=== PATIENT | female | born 1935 | race Caucasian/White ===

== ENCOUNTER 2020-08-16 12:40 | Inpatient (IN) ==
[~2020-08-16 12:40] MED LIST: CeFAZolin 2 GM/120 ML BAG IVPB SCH
[2020-08-16] MEDS ORDERED: CeFAZolin Syr 2,000MG/20 ML 2,000 MG/20 ML SYRINGE IVPB ONE (12:55)
[2020-08-16] MEDS ORDERED: Ringers Solution, Lactated 1,000 ML IVC SCH ×2 (13:00→19:45)
[2020-08-16] MEDS ORDERED: Acetaminophen IV 1,000 MG/100 ML INFUS..BTL IVPB ONE (13:22)
[2020-08-16] MEDS ORDERED: Famotidine 20 MG/2 ML VIAL IVP ONE (13:22)
[2020-08-16] MEDS ORDERED: Povidone-Iodine 45 ML, Sodium Chloride IRRigation 1,000 ML IR ONE (14:15)
[2020-08-16] MEDS ORDERED: *HR* Propofol 200 MG/20 ML VIAL IVP ONE (14:19)
[2020-08-16] MEDS ORDERED: *HR* FentaNYL (PF) 100 MCG/2 ML VIAL ONE (14:19)
[2020-08-16] MEDS ORDERED: Lidocaine -MPF 2% 2 ML VIAL ONE (14:34)
[2020-08-16] MEDS ORDERED: *HR* Succinylcholine 200 MG/10 ML VIAL IVP ONE (14:34)
[2020-08-16] MEDS ORDERED: Dexamethasone 4 MG/ML VIAL ONE (14:34)
[2020-08-16] MEDS ORDERED: *HR* OxyCODONE Immed Rel 5 MG TABLET PO PRN ×2 (14:36→19:45)
[2020-08-16] MEDS ORDERED: Ondansetron 4 MG/2 ML VIAL IVP PRN ×2 (14:36→19:45)
[2020-08-16] MEDS ORDERED: Vancomycin 1,000 MG VIAL ONE (14:41)
[2020-08-16] MEDS ORDERED: Ethanol\\Acetic Acid\\Na Ace\\Ben 1,000 ML IRRIG.SOLN IR ONE (14:41)
[2020-08-16] MEDS ORDERED: Ropivacaine/PF 0.5% 30 ML VIAL ONE (14:49)
[2020-08-16] MEDS ORDERED: *HR* PHENYLEPHRINE 1,000 MCG/10 ML SYRINGE IVP ONE (15:23)
[2020-08-16 17:27] LABS: Hematocrit 36.3 % (35.3-44.9); Hemoglobin 11.8 g/dL (11.5-15.4)
[2020-08-16] MEDS ORDERED: *HR* Enoxaparin 30 MG/0.3 ML SYRINGE SQ SCH (18:00)
[2020-08-16] MEDS ORDERED: Acetaminophen 325 MG TABLET PO PRN (19:45)
[2020-08-16] MEDS ORDERED: Sennosides 8.6 MG TABLET PO PRN (19:45)
[2020-08-16] MEDS ORDERED: Naloxone 0.4 MG/ML INJ IVP PRN (19:45)
[2020-08-16] MEDS ORDERED: Insulin LISPRO 300 UNITS/3 ML VIAL SQ SCH ×2 (19:45→21:00)
[2020-08-16] MEDS ORDERED: Dextrose Gel 15 GM/37.5 ML TUBE PO PRN ×2 (19:45)
[2020-08-16] MEDS ORDERED: *HR* OxyCODONE/APAP 5/325 TABLET PO PRN (19:45)
[2020-08-16] MEDS ORDERED: *HR* Dextrose 50 % in Water (Vial) 50 ML VIAL IVP PRN (19:45)
[2020-08-16] MEDS ORDERED: MOM Conc 10 ML UD.LIQ PO PRN (19:45)
[2020-08-16] MEDS ORDERED: D5% in Water 1,000 ML IVC PRN (19:45)
[2020-08-17] MEDS ORDERED: CeFAZolin 2 GM/120 ML BAG IVPB SCH
[2020-08-17 02:37] LABS: Hematocrit 34.8 % (35.3-44.9); Hemoglobin 11.2 g/dL (11.5-15.4)
[2020-08-17 02:54] LABS: Calcium 8.8 mg/dL (8.6-10.3); Potassium 4.4 mEq/L (3.5-5.1)
[2020-08-17] MEDS ORDERED: *HR* Enoxaparin 30 MG/0.3 ML SYRINGE SQ SCH (06:00)
[2020-08-17] MEDS ORDERED: Furosemide 20 MG TABLET PO SCH (09:00)
[2020-08-17] MEDS ORDERED: allopurinoL 100 MG TABLET PO SCH (09:00)
[2020-08-17] MEDS ORDERED: Multivit/Ca/Min/Fe/FA 1 TAB TABLET PO SCH (09:00)
[2020-08-17] MEDS ORDERED: Colchicine 0.6 MG TABLET PO SCH (09:00)
[2020-08-17] MEDS ORDERED: Aspirin Enteric Coated 81 MG Tablet PO SCH (09:00)
[2020-08-17 11:05] VITALS: BP 109/64
== END 2020-08-17 11:55 | disposition home or self-care (01) | DRG 483 ==
LOC: SAMDAY 12:40 → 3NENU 19:07
PROVIDERS: ADMIT Orthopaedic Surgery; ATTEND Orthopaedic Surgery